=== PATIENT | male | born 1965 | race Caucasian/White ===

== ENCOUNTER 2019-03-08 09:54 | Outpatient (CLI) | payer BC ==
--- NOTE | 2019-03-08 12:13 | XRAY Report ---
Reason: BALL OF FOOT PAIN LEFT Procedure Date: 03/08/2019 Accession Number: [id number] / [id number] Procedure: XR - Foot 3 View LT CPT Code: FULL RESULT: EXAM: LEFT FOOT RADIOGRAPHY EXAM DATE: 03/08/2019 10:05 AM. CLINICAL HISTORY: Ball of foot pain left. COMPARISON: None. TECHNIQUE: 3 views. FINDINGS: Bones: Normal. No fractures or bone lesions. Joints: Normal. No subluxations. Soft Tissues: Normal. No soft tissue swelling. IMPRESSION: No fracture or dislocation or mass is identified. RADIA
== END 2019-03-08 09:55 | disposition home or self-care (01) ==
LOC: DI 09:54
PROVIDERS: ATTEND Podiatrist
DX: M79.672 Pain in left foot (principal)

== ENCOUNTER 2019-05-09 09:08 | Outpatient (CLI) | payer OTHER ==
--- NOTE | 2019-05-09 09:35 | XRAY Report ---
Reason: PAIN IN RIGHT HAND Procedure Date: 05/09/2019 Accession Number: [id number] / [id number] Procedure: XR - Hand 3 View RT CPT Code: FULL RESULT: EXAM: RIGHT HAND RADIOGRAPHY EXAM DATE: 05/09/2019 09:23 AM. CLINICAL HISTORY: PAIN IN RIGHT HAND. COMPARISON: FINGER(S) LT 08/15/2013 3:13 PM. TECHNIQUE: 3 views. FINDINGS: Bones: No acute fracture. There is a small incidental round sclerotic lesion in the right fifth metatarsal head of no clinical significance. Joints: Normal. No subluxations. Soft Tissues: Patient has history of palpable lump of the proximal right finger. There is no corresponding soft tissue abnormality. No foreign body. IMPRESSION: No acute abnormality. RADIA
== END 2019-05-09 09:09 | disposition home or self-care (01) ==
LOC: DI 09:08
PROVIDERS: ATTEND Registered Nurse
DX: M79.641 Pain in right hand (principal)

== ENCOUNTER 2019-07-02 15:14 | Outpatient (CLI) | payer OTHER ==
--- NOTE | 2019-07-04 12:01 | MRI Report ---
Reason: CHORNIC LEFT FOREFOOT PAIN Procedure Date: 07/02/2019 Accession Number: [id number] / [id number] Procedure: MRI - Foot LT W/O CPT Code: FULL RESULT: EXAM: LEFT FOREFOOT MRI WITHOUT CONTRAST EXAM DATE: 07/02/2019 03:31 PM. CLINICAL HISTORY: Chronic left forefoot pain. COMPARISON: None. TECHNIQUE: Multiplanar, multisequence T1-weighted and fluid-sensitive sequences of the forefoot without contrast. Other: None. FINDINGS: Bones: No fractures. No marrow edema. No bone lesions. Joints: No subluxations. No effusions. The wftaji-wzvtwiol-fmiofyfgkr complex is unremarkable. The visualized plantar plates are unremarkable. Articular Cartilage: Unremarkable. Ligaments: The visualized collateral ligaments are intact. Tendons: The flexor and extensor tendons are unremarkable. Musculature: No edema or fatty atrophy. Other: No intermetatarsal bursitis. The subcutaneous tissues are unremarkable. IMPRESSION: No MRI abnormalities in the forefoot. No cellulitis. No fluid collections. No Hernandez neuroma. RADIA
== END 2019-07-02 15:15 | disposition home or self-care (01) ==
LOC: DI 15:14
PROVIDERS: ATTEND Podiatrist
DX: M79.672 Pain in left foot (principal); G89.29 Other chronic pain

== ENCOUNTER 2020-04-06 14:59 | Outpatient (CLI) | payer OTHER ==
[2020-04-06 15:18] LABS: BASOPHILS % (AUTO) 0.4 %; EOSINOPHILS # (AUTO) 0.1 10^3/uL (0.0-0.7); EOSINOPHILS % (AUTO) 2.7 %; HGB - HEMOGLOBIN 13.8 g/dL (14.0-18.0); LYMPHOCYTES # (AUTO) 1.4 10^3/uL (1.5-3.5); LYMPHOCYTES % (AUTO) 27.6 %; MEAN CORPUSCULAR HEMOGLOBIN 32.5 pg (27.0-31.0); MEAN CORPUSCULAR HGB CONC 34.8 g/dL (32.0-36.0); MEAN CORPUSCULAR VOLUME 93.6 fL (80.0-94.0); MEAN PLATELET VOLUME 8.9 fL (7.4-11.4); MONOCYTES # (AUTO) 0.5 10^3/uL (0.0-1.0); MONOCYTES % (AUTO) 10.5 %; NEUTROPHILS % (AUTO) 58.4 %; PLT - PLATELET COUNT 224 10^3/uL (130-450); RED BLOOD COUNT 4.24 10^6/uL (4.70-6.10); RED CELL DISTRIBUTION WIDTH 11.9 % (12.0-15.0); WHITE BLOOD COUNT 5.1 x10^3/uL (4.8-10.8)
== END 2020-04-06 15:00 | disposition home or self-care (01) ==
LOC: LAB 14:59
PROVIDERS: ATTEND Registered Nurse
DX: R51 Headache (principal)
CPT/HCPCS: 36415; 85025; 85651; 86140

== ENCOUNTER 2020-04-24 08:22 | Outpatient (CLI) | payer OTHER ==
[2020-04-24 08:37] LABS: BASOPHILS % (AUTO) 0.5 %; EOSINOPHILS # (AUTO) 0.1 10^3/uL (0.0-0.7); EOSINOPHILS % (AUTO) 2.6 %; HGB - HEMOGLOBIN 14.3 g/dL (14.0-18.0); LYMPHOCYTES # (AUTO) 1.4 10^3/uL (1.5-3.5); MEAN CORPUSCULAR HEMOGLOBIN 32.1 pg (27.0-31.0); MEAN CORPUSCULAR HGB CONC 33.7 g/dL (32.0-36.0); MEAN CORPUSCULAR VOLUME 95.3 fL (80.0-94.0); MEAN PLATELET VOLUME 8.7 fL (7.4-11.4); MONOCYTES # (AUTO) 0.5 10^3/uL (0.0-1.0); MONOCYTES % (AUTO) 13.7 %; NEUTROPHILS # (AUTO) 1.8 10^3/uL (1.5-6.6); NEUTROPHILS % (AUTO) 46.9 %; PLT - PLATELET COUNT 194 10^3/uL (130-450); RED BLOOD COUNT 4.45 10^6/uL (4.70-6.10); RED CELL DISTRIBUTION WIDTH 12.1 % (12.0-15.0); WHITE BLOOD COUNT 3.9 x10^3/uL (4.8-10.8)
[2020-04-24 09:11] LABS: FERRITIN 34.3 ng/mL (23.9-336.2)
[2020-04-24 09:16] LABS: % IRON SATURATION 19 % (20-50); IRON 73 ug/dL (45-182); TOTAL IRON BINDING CAPACITY 377 ug/dL (250-450); TRANSFERRIN 269 mg/dL (180-329)
[2020-04-24 09:50] LABS: FOLATE 22.98 ng/mL (5.90 - >24.8)
--- NOTE | 2020-04-24 16:46 | XRAY Report ---
Reason: RIGHT SIDE SCIATICA Procedure Date: 04/24/2020 Accession Number: [id number] / [id number] Procedure: XR - Lumbar Spine 2 View CPT Code: Final Report FULL RESULT: EXAM: LUMBOSACRAL SPINE RADIOGRAPHY EXAM DATE: 04/24/2020 08:42 AM. CLINICAL HISTORY: RIGHT SIDE SCIATICA. COMPARISONS: None. TECHNIQUE: 3 views. FINDINGS: Alignment: Normal. No spondylolisthesis or scoliosis. Bones: Five irv-evv-xkssbed lumbar vertebral bodies are present. Mild anterior wedging L1. No fractures or bone lesions. Disks: Small osteophyte anterior superior L3. Small osteophyte L5-S1. Facets: No degenerative changes. Sacroiliac Joints: Unremarkable. Soft Tissues: Normal. The visualized bowel gas pattern is normal. IMPRESSION: Mild DJD RADIA
== END 2020-04-24 08:23 | disposition home or self-care (01) ==
LOC: LAB 08:22
PROVIDERS: ATTEND Registered Nurse
DX: D64.9 Anemia, unspecified (principal); M47.817 Spondylosis without myelopathy or radiculopathy, lumbosacral region; M54.31 Sciatica, right side
CPT/HCPCS: 36415; 72100; 82607; 82728; 82746; 83540; 84466; 85025